=== PATIENT | female | born 1970 | race Caucasian/White ===

== ENCOUNTER 2017-02-12 15:54 | Emergency (ER) | payer OTHER ==
[2017-02-12 16:04] VITALS: RESP 18
--- NOTE | 2017-02-12 17:06 | EDPHY ---
H & P Stated Complaint: Dizzy since this AM. Pain in left calf. Time Seen by Provider: 02/12/17 17:06 HPI/ROS: HPI: This is a 47-year-old female who presents with Chief Complaint: Dizziness Location: Head Quality: Dizziness Duration: Today Signs and Symptoms: + mild dull aching headache, no vision loss or changes, no fever, no neck stiffness, + nausea, no vomiting, no chest pain, no weakness, no radiation Timing: Sudden, intermittent episodes, no aura Severity: Moderate Context: Patient reports that she went for a run this morning. [place] As she was driving she started to experience sudden onset of dizziness; that she describes as "a spinning sensation" and then accompanied by nausea. She also has noted over the last 1- 2 weeks in her left lower calf "a bulge" she denies injury/recent long distance travel. Last menstrual period was 3 weeks ago. status post vasectomy. Denies history of migraines or vertigo in the past. No recent upper respiratory symptoms. Modifying Factors: Has not tried anything for the symptoms. Comment: ROS: Constitutional: No fever, no chills, no weight loss Eyes: No blurred vision Respiratory: No shortness of breath, no cough Cardiovascular: No chest pain Gastrointestinal: No nausea, no vomiting no diarrhea Genitourinary: No dysuria Extremities: No myalgias Neurologic: No weakness, no numbness Skin: No rashes Hematologic: No bruising, no bleeding MEDICAL/SURGICAL/SOCIAL HISTORY: Generally healthy. Denies surgical history Source: Patient Exam Limitations: No limitations - Personal History LMP (Females 10-55): 22-28 Days Ago Current Tetanus Diphtheria and Acellular Pertussis (TDAP): Yes - Medical/Surgical History Hx Asthma: No Hx Chronic Respiratory Disease: No Hx Diabetes: No Hx Cardiac Disease: No Hx Renal Disease: No Hx Cirrhosis: No Hx Alcoholism: No Hx HIV/AIDS: No Hx Splenectomy or Spleen Trauma: No Other PMH: Denies - Social History Smoking Status: Never smoked - Physical Exam Exam: CONSTITUTIONAL: awake and alert, no obvious distress HEENT: Atraumatic and normocephalic, PERRL, EOMI. Tympanic membranes clear. Oropharynx clear, no exudate and moist pink mucosa. Nares patent; no sinus tenderness. Airway patent. No lymphadenopathy. No meningismus. Cardiovascular: Normal S1/S2, regular rate, regular rhythm, without murmur rub or gallop. PULMONARY/CHEST: Symmetrical and nontender. Clear to auscultation bilaterally Good air movement. No accessory muscle usage. ABDOMEN: Soft, nondistended, nontender, no rebound, no guarding, no peritoneal signs, no masses or organomegaly. No CVAT. EXTREMITIES: 2/2 pulses, no deformities, no clubbing, no cyanosis or edema. NEUROLOGICAL: no focal neuro deficits. GCS 15. Neck statements noted on Miladys- Hallpike maneuver accompanied by dizziness. Normal cerebellar testing. SKIN: Warm and dry, no erythema. no rash. Good capillary refill. Constitutional: Initial Vital Signs Temperature (C) 36.9 C 02/12/17 16:00 Heart Rate 66 02/12/17 16:00 Respiratory Rate 18 02/12/17 16:00 Blood Pressure 149/88 H 02/12/17 16:00 O2 Sat (%) 99 02/12/17 16:00 O2 Delivery Mode Room Air Allergies/Adverse Reactions: No Known Allergies Allergy (Unverified 02/12/17 16:03) Home Medications: Medication Instructions Recorded Meclizine HCl [Meclizine HCl 12.5 12.5 mg PO TID PRN #12 tab 02/12/17 mg (*)] Medical Decision Making - Diagnostics EKG Interpretation: 12 lead EKG: Indication: dizziness Rhythm: Normal sinus rhythm, rate 62 bpm Carpio: Normal Intervals: Normal QRS: Normal ST segments: Normal INTERPRETATION: Normal EKG The 12 lead EKG was interpreted by myself. There are no prior EKGs to compare. Imaging Results: Imaging Impressions Head CT 02/12/17 17:11 Impression: 1. There is no acute abnormality identified on this unenhanced CT evaluation. 2. Nonspecific small coarse calcification involving the medial portion of the right cerebellum, of uncertain significance. Consider follow-up MR imaging with and without contrast to assure that there is no associated occult mass. Findings and recommendations were discussed with Ashia Reed PA-C at 18:43, on . Extremity Venous Study 02/12/17 17:12 Impression: Negative. No deep venous thrombosis. Findings discussed with Emergency Department physician operator/assistant foreman, Ashia Reed at 02/12/2017 17:41. ED Course/Re-evaluation: Labs, urinalysis, IV fluids, head CT scan, left lower extremity ultrasound Head CT scan indication is new onset dizziness and headache 1725: Given 1 L of normal saline and p.o. meclizine 25 mg 1743: Called by radiologist, Dr. Henriquez, and left lower extremity ultrasound does not show any deep venous thrombosis or superficial thrombophlebitis Labs reviewed and unremarkable including no signs of electrolyte imbalance/ thyroid disease/acute kidney injury/significant anemia Urine negative UA shows no signs of infection 1845: Called by Radiology, head CT scan shows no acute intracranial process. + small coarse calcification involving the medial portion of the right cerebellum. Recommend outpatient MR with and without contrast outpatient Differential Diagnosis: Dizziness including but not limited to peripheral and central causes of vertigo , migraine, orthostatic causes including dehydration, and blood loss. - Data Points Laboratory Results: Laboratory Results 02/12/17 17:07 02/12/17 17:07 02/12/17 02/12/17 02/12/17 18:10 17:07 17:07 WBC 6.19 10^3/uL 10^3/uL (3.80-9.50) RBC 4.53 10^6/uL 10^6/uL (4.18-5.33) Hgb 12.5 g/dL L g/dL (12.6-16.3) Hct 37.8 % L % (38.0-47.0) MCV 83.4 fL fL (81.5-99.8) MCH 27.6 pg L pg (27.9-34.1) MCHC 33.1 g/dL g/dL (32.4-36.7) RDW 13.9 % % (11.5-15.2) Plt Count 290 10^3/uL 10^3/uL (150-400) MPV 10.6 fL fL (8.7-11.7) Neut % (Auto) 52.4 % % (39.3-74.2) Lymph % (Auto) 38.6 % % (15.0-45.0) [place] % (Auto) 7.8 % % (4.5-13.0) Eos % (Auto) 0.6 % % (0.6-7.6) Baso % (Auto) 0.6 % % (0.3-1.7) Nucleat RBC Rel Count 0.0 % % (0.0-0.2) Absolute Neuts (auto) 3.24 10^3/uL 10^3/uL (1.70-6.50) Absolute Lymphs (auto) 2.39 10^3/uL 10^3/uL (1.00-3.00) Absolute Monos (auto) 0.48 10^3/uL 10^3/uL (0.30-0.80) Absolute Eos (auto) 0.04 10^3/uL 10^3/uL (0.03-0.40) Absolute Basos (auto) 0.04 10^3/uL 10^3/uL (0.02-0.10) Absolute Nucleated RBC 0.00 10^3/uL 10^3/uL (0-0.01) Immature Gran % 0.0 % % (0.0-1.1) Immature Gran # 0.00 10^3/uL 10^3/uL (0.00-0.10) Sodium 137 mEq/L mEq/L (134-144) Potassium 3.6 mEq/L mEq/L (3.5-5.2) Chloride 102 mEq/L mEq/L (97-110) Carbon Dioxide 23 mEq/l mEq/l (22-31) Anion Gap 12 mEq/L mEq/L (8-16) BUN 11 mg/dL mg/dL (7-23) Creatinine 0.8 mg/dL mg/dL (0.6-1.0) Estimated GFR > 60 Glucose 88 mg/dL mg/dL (70-100) Calcium 10.2 mg/dL mg/dL (8.5-10.4) TSH 3.560 uIU/mL uIU/mL (0.465-4.680) Urine Color PALE YELLOW Urine Appearance CLEAR Urine pH 6.0 (5.0-7.5) Ur Specific Reading 1.004 (1.002-1.030) Urine Protein NEGATIVE (NEGATIVE) Urine Ketones NEGATIVE (NEGATIVE) Urine Blood NEGATIVE (NEGATIVE) Urine Nitrate NEGATIVE (NEGATIVE) Urine Bilirubin NEGATIVE (NEGATIVE) Urine Urobilinogen NEGATIVE EU EU (0.2-1.0) Ur Leukocyte Esterase NEGATIVE (NEGATIVE) Urine Glucose NEGATIVE (NEGATIVE) Medications Given: Discontinued Medications Sodium Chloride (Ns) 1,000 mls @ 0 mls/hr IV EDNOW ONE; Wide Open PRN Reason: Protocol Stop: 02/12/17 17:26 Last Admin: 02/12/17 17:26 Dose: 1,000 mls Meclizine HCl (Meclizine Hcl) 25 mg PO EDNOW ONE Stop: 02/12/17 17:13 Last Admin: 02/12/17 17:25 Dose: 25 mg Departure - Departure Disposition: Home, Routine, Self-Care Clinical Impression: Vertigo Condition: Good Instructions: Vertigo (ED), Dizziness (ED) Additional Instructions: Your head CT scan today shows no acute intracranial process. There is a nonspecific small coarse calcification involving the medial portion of the right cerebellum of uncertain in significant. Follow up with her primary care provider outpatient for MR with and without contrast to further evaluate for occult mass. Referrals: Bhakti Bone MD [Primary Care Provider] - 2-3 days, if not improved Prescriptions: Meclizine HCl [Meclizine HCl 12.5 mg (*)] 12.5 mg PO TID PRN #12 tab PRN Reason: Dizziness
[2017-02-12] MEDS ORDERED: MECLIZINE HCL 25 MG TAB PO ONE (17:12)
--- NOTE | 2017-02-12 17:16 | CPEKG ---
Heart Rate: 62 RR Interval: 968 P-R Interval: 188 QRSD Interval: 84 QT Interval: 404 QTC Interval: 411 P Mccormick: 57 QRS Mccormick: 66 T Wave Mccormick: 43 EKG Severity - NORMAL ECG - EKG Impression: SINUS RHYTHM Electronically Signed By: Humphrey Navarro 13-Feb-2017 12:24:56
[2017-02-12] MEDS ORDERED: NS 1,000 ML IV ONE (17:25)
[2017-02-12 17:26] LABS: ADD DIFF? NO; ADD MORPH? NO; ADD SCAN? NO; ATYPICAL LYMPHOCYTE FLAG 0 (0-99); FRAGMENT RBC FLAG 0 (0-99); HEMATOCRIT 37.8 % (38.0-47.0); HEMOGLOBIN 12.5 g/dL (12.6-16.3); LEFT SHIFT FLG 0 (0-99); LIPEMIA HEMOLYSIS FLAG 80 (0-99); MEAN CELL HEMOGLOBIN 27.6 pg (27.9-34.1); MEAN CELL HEMOGLOBIN CONCENTR. 33.1 g/dL (32.4-36.7); MEAN CELL VOLUME 83.4 fL (81.5-99.8); MEAN PLATELET VOLUME 10.6 fL (8.7-11.7); PLATELET CLUMPS FLAG 0 (0-99); PLATELET COUNT 290 10^3/uL (150-400); RED BLOOD CELL COUNT 4.53 10^6/uL (4.18-5.33); RED CELL DISTRIBUTION WIDTH 13.9 % (11.5-15.2)
[2017-02-12 17:43] LABS: ANION GAP 12 mEq/L (8-16); CALCIUM 10.2 mg/dL (8.5-10.4); CARBON DIOXIDE 23 mEq/l (22-31); CHLORIDE 102 mEq/L (97-110); CREATININE 0.8 mg/dL (0.6-1.0); GLOMERULAR FILTRATION RATE > 60; GLUCOSE 88 mg/dL (70-100); POTASSIUM 3.6 mEq/L (3.5-5.2); SODIUM 137 mEq/L (134-144)
[2017-02-12 18:22] LABS: COLOR PALE YELLOW; LEUKOCYTE ESTERASE,URINE NEGATIVE (NEGATIVE); NITRITE,URINE NEGATIVE (NEGATIVE)
[2017-02-12 19:15] VITALS: BP 115/71; PULSE 62; TEMP 98.8; O2SAT 96
== END 2017-02-12 19:15 | disposition home or self-care (01) ==
DX: R42 Dizziness and giddiness (principal); E86.9 Volume depletion, unspecified

== ENCOUNTER → 2017-03-17 | Outpatient (CLI) | payer OTHER ==
[~2017-03-17] MED LIST: GADOBUTROL 10 ML VIAL IVP ONE
== END ==
LOC: FIMAGING 10:23
PROVIDERS: ATTEND Family Medicine
DX: G93.89 Other specified disorders of brain (principal); R42 Dizziness and giddiness
CPT/HCPCS: A9585

== ENCOUNTER → 2018-03-05 | Outpatient (CLI) | payer OTHER | LOC: FIMAGING 11:34 | PROVIDERS: ATTEND Family Medicine | DX: Z12.31 Encounter for screening mammogram for malignant neoplasm of breast (principal) ==